=== PATIENT | male | born 2000 | race Caucasian/White ===

== ENCOUNTER 2024-12-24 11:45 | Emergency (ER) | payer SELFPAY ==
[2024-12-24 11:48] VITALS: BP 119/77
--- NOTE | 2024-12-24 14:23 | ED.GENMED ---
History of Present Illness
General
Chief Complaint: Throat Problem
Source: patient
Exam Limitations: none
Time Seen by Provider: 12/24/24 14:01
History of Present Illness
History of Present Illness:
24yoM with a no significant past medical history presenting for evaluation of foreskin irritation. Patient has been having issues with foreskin irritation for at least a year. He was previously seen by a weaver needle loom and diagnosed with psoriasis.
He states the skin of his foreskin will get very red and swollen at times and his skin will flake. Symptoms seemed to resolve and recurred about 6 months ago. Symptoms tend to flare during periods of stress. He has tried multiple things without
any relief. He was using miconazole cream for a month recently. He is very strict with his hygiene and cleans himself twice a day with water and an organic soap. He also applies jojoba oil. He is not sure what to do so came to the ED.
Additionally, he is having URI symptoms x 5 days with congestion, cough, and a sore throat. He denies any fevers, dysuria, penile discharge, testicular pain. He is not currently sexually active.
Phy Exam
General Physical Exam
General Presentation: well appearing and no apparent distress
General age: appears stated age
General Skin: warm and dry
General Habitus: normal
General Mental: alert
ENT Exam
ENT Exam: TM's normal, pharynx normal, neck supple and normocephalic
Pulmonary Exam
Pulmonary Exam: lungs clear, no respiratory distress, no rales, no crackles and no rhonchi
Genitourinary Exam Male
Exam Male: other (Mild skin flaking of penile shaft without other skin changes/swelling/erythema. No evidence of balanitis, phimosis, or paraphimosis. )
Neurological Exam
Neurological Exam: alert
Lianet Coma Scale
Eye Opening: Spontaneous
Verbal Response: Oriented
Motor Response: Obeys Commands
GCS Total Score: 15
Skin Exam
Skin Exam: normal color and warm/dry
Psychiatric Exam
Psychiatric Exam: normal mood/affect
Course
Orders/Labs/Results
Orders:
Orders
12/24/24 11:58
Rapid Strep Group A Urgent
DREW Source: Throat/Pharynx
Specimen Description:
Date Specimen was Collected: 12/24/24
Time Specimen was Collected: 11:51
Vital Signs
Initial and Last Documented VS:
Initial Vital Signs
Temp Pulse Resp BP Pulse Ox
98.9 F 85 18 119/77 99
12/24/24 11:48 12/24/24 11:48 12/24/24 11:48 12/24/24 11:48 12/24/24 11:48
Last Documented Vital Signs
Temp Pulse Resp BP Pulse Ox
98.9 F 76 20 119/85 98
12/24/24 11:48 12/24/24 15:11 12/24/24 15:11 12/24/24 15:11 12/24/24 15:11
MDM/Problems Addressed
Differential Diagnosis Includes:
24yoM here with foreskin irritation x several months. Also having URI symptoms x 5 days. Has been seen by dermatology for the same and was diagnosed with psoriasis. Has been trying multiple things without relief. VSS. There is mild skin flaking to
the penile shaft on exam which appears to be skin irritation. Patient concerned about a fungal or bacterial infection although there is no evidence of this on exam and was previously using miconazole x 1 month without any improvement. Skin
irritation may be from the oils he is using as well as the frequent washing. He is currently showering BID and was advised to decrease this to daily. He was also instructed to stop jojoba oil and use Vaseline. Advised f/u with urology and
dermatology.
*Critical Care Note
Total Time (30-74mins, 75-104mins- exclusive of procedures): Not Applicable
ED Attending Note
-
Portions of this chart may have been created with voice recognition software.� Occasional wrong word or��sound alike� substitutions may have occurred due to the inherent limitations of voice recognition software.
Discharge Plan
Departure
Patient Disposition: Home (Routine Discharge)
Date of Disposition: 12/24/24
Time of Disposition: 14:26
Patient with high blood pressure during this ER visit?: No
Discharge Problem:
Penile irritation, Acute upper respiratory infection
Instructions: Skin rash - ED discharge instructions
Referrals:
Yair Cifuentes MD [Active] -
Ruth Bernard DO [Active] -
Activity Restrictions/Additional Instructions:
Decrease to once a day washing. Stop applying oil and switch to Vaseline.
Please follow-up with a weaver needle loom and a urologist.
Interventions
Interventions:
*Risk Screen - Suicide Last Done: 12/24/24 11:50
*General Assessment Last Done: 12/24/24 11:50
*Neglect/Abuse Screening Last Done: 12/24/24 11:50
*ED COVID-19 Vaccine History Last Done: 12/24/24 14:30
*Nursing Disposition Last Done: 12/24/24 15:11
ED-EENT Assessment Last Done: 12/24/24 14:30
ED- Pulmonary Assessment Last Done: 12/24/24 14:30
Discharge Date and Time
Discharge Date/Time: 12/24/24 15:11
Print Language: [id number]
[2024-12-24 15:11] VITALS: BP 119/85
== END 2024-12-24 15:11 | disposition home or self-care (01) ==
LOC: EMR 11:45
PROVIDERS: EMERGENCY PHYSICIAN Student in an Organized Health Care Education/Training Program
DX: N48.89 Other specified disorders of penis (principal); J06.9 Acute upper respiratory infection, unspecified; L40.9 Psoriasis, unspecified
CPT/HCPCS: 99283; 87070; 87880